=== PATIENT | male | born 1955 | race Caucasian/White ===

== ENCOUNTER 2017-03-10 17:15 | Inpatient (IN) | payer MEDICARE, MEDICAID ==
[2017-03-10 17:50] LABS: % BASOPHILS 0.2 % (0.0-2.0); % EOSINOPHILS 1.4 % (0.0-5.0); % LYMPHOCYTES 31.8 % (20.0-50.0); % MONOCYTES 7.4 % (2.0-10.0); % NEUTROPHILS 59.2 % (40.0-80.0); HEMATOCRIT 39.2 % (39.0-49.0); HEMOGLOBIN 13.1 gm/dL (13.2-17.3); MEAN CELL VOLUME 93.4 fl (80-99); MEAN CORPUSCULAR HEMOGLOBIN 31.3 pg (26.0-30.0); MEAN CORPUSCULAR HGB CONC 33.5 pg (28.0-36.0); MEAN PLATELET VOLUME 7.7 fl; NEUTROPHILE ABSOLUTE 4.8 Th/cmm (1.8-8.0); PLATELET COUNT 206 Th/cmm (150-400); RED CELL DISTRIBUTION WIDTH 12.8 % (11.5-20.0); WHITE BLOOD COUNT 8.1 Th/cmm (4.8-10.8)
--- NOTE | 2017-03-10 17:56 | ED Physician Chart ---
Chief Complaint/HPI - Patient Information Date Seen:: 03/10/17 Time Seen:: 17:31 Chief Complaint:: PSYCHOSIS History of Present Illness:: THIS IS A 62 YO DEMENTED MALE WHO IS CONFUSED TRYING TO GET AWAY CONSTANTLY AND AT TIMES COMBATIVE. HE IS UNABLE TO GIVE A HISTORY AND REVIEW OF HISTORY. Allergies:: Allergies Allergy/AdvReac Type Severity Reaction Status Date / Time No Known Allergies Allergy Verified 03/10/17 17:28 Vitals:: Vital Signs - 8 hr 03/10/17 17:20 Temp 98.1 F HR 69 RR 18 BP 101/47 O2 Sat % 97 Family Medical History - Family Member mother History Unknown: Yes Physical Exam - Physical Examination General/Constitutional: Awake, Well-developed, well-nourished, Alert, No distress, GCS 15, Non-toxic appearing, Ambulatory Other Gen/Cons comments:: CONFUSED WANDERING ALL OVER THE ER AND HAD TO BE SEDATED. Head: Atraumatic Eyes: Lids, conjuctiva normal, PERRL, EOMI Skin: Nl inspection, No rash, No skin lesions, No ecchymosis, Well hydrated, No lymphadenopathy ENMT: External ears, nose nl, Nasal exam nl, Lips, teeth, gums nl Neck: Nontender, Full ROM w/o pain, No JVD, No nuchal rigidity, No bruit, No mass, No stridor Respiratory: Nl effort/Exclusion, Clear to Auscultation, No Wheeze/Rhonchi/Rales Cardio Vascular: RRR, No murmur, gallop, rubs, NL S1 S2 GI: No tenderness/rebounding/guarding, No organomegaly, No hernia, Normal BS's, Nondistended, No mass/bruits, No McBurney tenderness : No CVA tenderness Extremities: No tenderness or effusion, Full ROM, normal strength in all extremities, No edema, Normal digits & nails Neuro/Psych: Alert/oriented, DTR's symmetric, Normal sensory exam, Normal motor strength, Normal gait, No focal deficits Other Neuro/Psych comments:: CONFUSED AND COMBATIVE Misc: normal gait, Normal back, No paraspinal tenderness Labs/Radiology/EKG Results - Radiology Results Results: CHEST - X-RAY = RIGHT HILAR NODES NOTED. OLD HEALING FX OF THE HUMERUS - EKG Interpretations EKG Time:: 17:39 Rate & Rhythm: RATE =67, SINUS [place]: RIGHT AXIS Intervals: NO PVCS Assessment - Assessment General Assessment: THE PATIENT HAD TO BE GIVEN TWO MG OF ATIVAN IM TO SLOW HIM DOWN. ED Septic Shock - . Is Septic Shock (SBP<90, OR Lactate>4 mmol\L) present?: No - <6hrs of presentation: Vital Signs: Vital Signs - 8 hr 03/10/17 17:20 Temp 98.1 F HR 69 RR 18 BP 101/47 O2 Sat % 97 Reassessment (Disposition) - Reassessment Reassessment Condition:: Unchanged - Diagnosis Diagnosis:: PSYCHOSIS COMBATIVE - Patient Disposition Discharge/Transfer:: Acute Care w/in this hosp Admitting Medical Physician:: Dilip Driver Admitting Psych Physician:: Kash Harp ED Discharge Plan - Patient Disposition Instructions: Psychosis
[2017-03-10 18:04] LABS: INR 0.95 (0.5-1.4); PROTHROMBIN TIME (TEST) 9.9 SECONDS (9.5-11.5)
[2017-03-10 18:11] LABS: ALB/GLOB RATIO 1.6 (1.0-1.8); ALKALINE PHOSPHATASE 118 U/L (34-104); ANION GAP 4.2 (7.0-16.0); BILIRUBIN,TOTAL 0.2 mg/dL (0.3-1.0); BUN - UREA NITROGEN 21 mg/dL (7-25); BUN/CREATININE RATIO 26.3; CALCIUM SERUM 10.7 mg/dL (8.6-10.3); CARBON DIOXIDE 33.1 mEq/L (21.0-31.0); CHLORIDE 104 mEq/L (98-107); CHOLESTEROL 148 mg/dL (<200); CREATININE - SERUM 0.8 mg/dL (0.7-1.3); GLUCOSE 90 mg/dL (70-105); POTASSIUM SERUM 4.3 mEq/L (3.5-5.1); SGOT 16 U/L (13-39); SGPT/ALT 7 U/L (7-52); SODIUM SERUM 137 mEq/L (136-145); TRIGLYCERIDES 169 mg/dL (<150)
[2017-03-10] MEDS ORDERED: Haloperidol Lactate 5 mg/mL 1mL Vial IM STA (18:30)
[2017-03-10] MEDS ORDERED: Haloperidol Lactate 5 mg/mL 1mL Vial ONE ×2 (18:31→18:34)
[2017-03-10] MEDS ORDERED: Fleet Enema 135 mL RC PRN (21:02)
[2017-03-10 23:20] VITALS: BP 115/63
[2017-03-11] MEDS ORDERED: Non-Formulary Item 1 EA (Pimavanserin Tartrate [Nuplazid] 34 MG) PO SCH (09:00)
[2017-03-11] MEDS ORDERED: LITHIUM CITRATE PO SCH (09:00)
--- NOTE | 2017-03-11 10:51 | Diagnostic Imaging Report ---
Portable chest x-ray HISTORY: Some breath Prior exams are not available for comparison. There is a poor inspiration. The heart size appears generous. Elevation right hemidiaphragm. There is generalized accentuation of the interstitial lung markings. The finding may be related to the poor inspiration. No definite focal processes are seen. Deformity associated with a fracture of the left humeral neck and proximal shaft noted. Age is indeterminate. Extensive deformity associated with old fracture of the distal left clavicle also seen. IMPRESSION: 1. Poor inspiration with accentuation of the interstitial lung markings. Allowing for this factor, no definite focal processes 2. Suggestion of cardiomegaly 3. Fractures distal left clavicle, left humeral neck and proximal shaft that appear chronic.
[2017-03-11] MEDS: Magnesium Hydroxide (MOM) 30 mL UDC PO SCH (20:44)
[2017-03-11] MEDS ORDERED: Non-Formulary Item 1 EA (Melatonin [Melatonin] 3 MG) PO SCH (21:00)
--- NOTE | 2017-03-12 08:29 | Psychosocial Evaluation ---
DATE OF SERVICE: 03/11/2017 IDENTIFYING DATA: The patient is a 62-year-old male, resident of [facility]. Information obtained by interviewing the patient as well as reviewing the admission papers. JUSTIFICATION FOR HOSPITALIZATION: The patient is admitted here on a voluntary basis in view of his acute agitation and paranoid behavior. CHIEF COMPLAINT: "I do not know." HISTORY OF PRESENT ILLNESS: This is a first psychiatric hospitalization to [facility] for this patient, who is reported to be very paranoid and agitated and has pain and could not be continued to lower level of care and hence the patient has been transferred over here. Prior to the hospitalization, the patient is reported to have been followed up by and has been on Seroquel and lithium. Because of his agitation, the patient has been given a dose of the Haldol, from thereon the patient has been displaying acute extrapyramidal reaction and hence Benadryl 25 mg has to be given IM. The patient has been diagnosed to have schizoaffective disorder. The patient at this time has been displaying bizarre behavior such as eating the paper and has been pacing most of the time on the unit. The patient is not able to provide much of information and the patient is also being closely monitored at this time for any acute EPS. PAST PSYCHIATRIC HISTORY: Details are not known. MEDICAL HISTORY: Physical examination is requested to be done by Dr. Driver. The patient at this time has been followed up for Parkinson's disease. The patient at this time has been having difficult time to cope with the stress. The patient's insight and judgment at this time are noted to be very much impaired. Impulse control is noted to be poor. SUBSTANCE ABUSE HISTORY: None. PHYSICAL OR SEXUAL ABUSE HISTORY: None. SOCIAL HISTORY: The patient is a resident of the [facility]. MENTAL STATUS EXAMINATION: The patient is a 62-year-old, looking his stated age, superficially cooperative. Eye contact is fair. Mood is noted to be depressed. Affect is constricted. The patient has been having EPS. The patient is almost catatonic. The patient is not able to contract for safety. The patient's behavior is reported to be a danger to others. The patient is alert, but as mentioned earlier cognitive abilities could not be tested at this time. DIAGNOSTIC IMPRESSION: AXIS I: Schizoaffective disorder, psychotic at this time. AXIS II: None. AXIS III: As per Dr. Driver. IMMEDIATE TREATMENT PLAN: The patient is going to be continued on the Seroquel. Trazodone is going to be decreased to 50 mg at bedtime, lithium is going to be on hold, Ativan is going to be given on a p.r.n. basis, so also the Benadryl. ESTIMATED LENGTH OF STAY: 3-5 days. DISCHARGE CRITERIA: When patient is no longer a threat to self or others and be able to cope up with the stress. JOB# [id number]
[2017-03-12] MEDS: Magnesium Hydroxide (MOM) 30 mL UDC PO SCH (20:33)
--- NOTE | 2017-03-12 22:19 | History & Physical ---
ADMIT DATE: 03/10/2017 CHIEF COMPLAINT: Psychosis. HISTORY OF PRESENT ILLNESS: The patient is a 62-year-old white male who was confused and trying to get away and combative. The patient is demented. The patient is unable to give history. ALLERGIES: No known allergies. FAMILY HISTORY: Noncontributory. SOCIAL HISTORY: The patient was transferred from [facility]. PAST MEDICAL HISTORY: Schizophrenia, paranoid type; dementia; bipolar disorder; Parkinson disease. MEDICATION: The patient is on Parkinson's medication, melatonin for schizophrenia. PAST SURGICAL HISTORY: Unknown. REVIEW OF SYSTEMS: See history of present illness. PHYSICAL EXAMINATION: GENERAL: The patient is awake, nontoxic in appearance. VITAL SIGNS: On admission, temperature 98.1, pulse 69, blood pressure 101/47, respiratory rate 18 and O2 sat is 97% on room air. HEENT: Normocephalic, atraumatic. Extraocular movements intact. Pupils reactive. Oropharynx clear. NECK: Supple. No thyromegaly. No lymphadenopathy. RESPIRATORY: Clear. No wheezes or rhonchi. GASTROINTESTINAL: Soft, nontender, nondistended. Positive bowel sounds. GENITOURINARY: No CVA tenderness. No suprapubic tenderness. BACK: No tenderness. EXTREMITIES: Equal pulses bilaterally. No cyanosis, clubbing or edema. SKIN: Negative. PSYCHIATRIC: Paranoid schizophrenia, bipolar type, altered level of consciousness. NEUROLOGIC: Cranial nerves intact. Extraocular movements are intact. Sensation is intact. Neurovascular intact. Bilateral muscle strength grossly equal. LABORATORY DATA: On admission are as follows; Hematology: WBC 8.1, hemoglobin 13.1, hematocrit 39.2, platelet count of 206, no left shift noted. PT 10.9, INR 0.95, PTT 23.3. Chemistry: Sodium 137, potassium 4.3, chloride 104, bicarbonate 33, anion gap 4.2, BUN 21, creatinine 0.8, GFR is more than 60. Glucose 90, calcium is 10.7, total bilirubin 0.2, AST 16, ALT 7, alkaline phosphatase 118. Troponin is 0.03. Total protein 6.2, albumin 3.8, globulin 2.4. Liver panel: Triglycerides 169, cholesterol 148, LDL is 72, HDL 51. TSH 1.43. RPR is nonreactive. IMPRESSION: 1. Acute psychosis, altered level of consciousness. 2. Paranoid schizophrenia. 3. Dementia. 4. Bipolar disorder. 5. Parkinson disease. PLAN: The patient was admitted to Geropsych Unit, seen by Dr. Edilberto Driver. Psychiatry consultation, Dr. Harp. We will obtain further labs and consultation as needed. JOB# [id number]
--- NOTE | 2017-03-13 02:13 | Progress Notes ---
DATE: 03/12/2017 PSYCHIATRIC PROGRESS NOTE TIME PATIENT SEEN: 8:15 a.m. SUBJECTIVE: Staff was spoken to. The patient is interviewed. Mood is noted to be irritable. Affect is constricted. The patient is grossly psychotic. Insight and judgment at this time are noted to be impaired. No side effects to the medications are noted. The patient has been having difficult time to cope with the stress. The patient has been urinating all over the floor and the patient has no clue with regards to the surroundings. Insight and judgment at this time are noted to be very much impaired. Impulse control seems to be fair. Coping skills are also noted to be fair. The patient, however, not aggressive, but is very confused at this time. ASSESSMENT: The patient has been having difficult time to cope with the stress. PLAN: To continue current meds and follow up. JOB# [id number] CARINA
--- NOTE | 2017-03-13 04:30 | Progress Notes ---
DATE: 03/12/2017 SUBJECTIVE: The patient is awake and alert. The patient is in Geropsych Unit. OBJECTIVE: VITAL SIGNS: Temperature 98.5, pulse of 77, blood pressure 133/71, respiratory rate 20, and O2 sat is 100% on room air. CARDIOVASCULAR: S1 and S2. RESPIRATORY: Clear. GASTROINTESTINAL: Soft. Positive bowel sounds. LABS: No labs for today. ASSESSMENT: 1. Schizoaffective disorder (psychotic). 2. Anemia. 3. Hypercalcemia. 4. Hyperalbuminemia. 5. Dyslipidemia. PLAN: Continue current treatment and medication. Obtain labs in a.m. Further recommendations per Psychiatry. JOB# [id number]
[2017-03-13 06:57] LABS: % BASOPHILS 0.4 % (0.0-2.0); % EOSINOPHILS 1.3 % (0.0-5.0); % LYMPHOCYTES 36.6 % (20.0-50.0); % MONOCYTES 7.5 % (2.0-10.0); % NEUTROPHILS 54.2 % (40.0-80.0); HEMATOCRIT 42.1 % (39.0-49.0); HEMOGLOBIN 14.1 gm/dL (13.2-17.3); MEAN CORPUSCULAR HEMOGLOBIN 30.7 pg (26.0-30.0); MEAN CORPUSCULAR HGB CONC 33.4 pg (28.0-36.0); MEAN PLATELET VOLUME 7.8 fl; NEUTROPHILE ABSOLUTE 3.3 Th/cmm (1.8-8.0); PLATELET COUNT 233 Th/cmm (150-400); RED BLOOD COUNT 4.58 Mil/cmm (4.30-5.70); RED CELL DISTRIBUTION WIDTH 12.7 % (11.5-20.0)
[2017-03-13 07:03] LABS: WHITE BLOOD COUNT 6.1 Th/cmm (4.8-10.8)
[2017-03-13 07:22] LABS: ANION GAP 3.1 (7.0-16.0); BUN - UREA NITROGEN 23 mg/dL (7-25); BUN/CREATININE RATIO 32.9; CALCIUM SERUM 10.9 mg/dL (8.6-10.3); CARBON DIOXIDE 32.1 mEq/L (21.0-31.0); CHLORIDE 106 mEq/L (98-107); CREATININE - SERUM 0.7 mg/dL (0.7-1.3); GLUCOSE 91 mg/dL (70-105); POTASSIUM SERUM 4.2 mEq/L (3.5-5.1); SODIUM SERUM 137 mEq/L (136-145)
[2017-03-13] MEDS: Magnesium Hydroxide (MOM) 30 mL UDC PO SCH (21:12)
--- NOTE | 2017-03-14 02:49 | Progress Notes ---
DATE: 03/13/2017 PSYCHIATRIC PROGRESS NOTE TIME PATIENT SEEN: 11:00 a.m. SUBJECTIVE: Staff was spoken to. The patient is interviewed. Mood is noted to be less irritable. Affect is appropriate. The patient is not making much sense. The patient needs to be redirected constantly. The patient is actively responding to internal stimuli. The patient is acting very bizarre and has been urinating all over the floor. ASSESSMENT: The patient is still psychotic. PLAN: To continue the patient with the current medications and followup. JOB# [id number]
--- NOTE | 2017-03-14 07:01 | Progress Notes ---
DATE: 03/13/2017 SUBJECTIVE: The patient is awake, alert. The patient is seen in Geropsych Unit. OBJECTIVE: VITAL SIGNS: Temperature 98.6, pulse 68, blood pressure 104/59, respirations 20, oxygen saturation 99% on room air. CARDIOVASCULAR: S1, S2. RESPIRATORY: Clear. GASTROINTESTINAL: Soft, positive bowel sounds. LABORATORY DATA: Labs on the patient is hematology, WBC 7.1, hemoglobin 14.1, hematocrit 42.1, platelet count of 253, no left shift noted. Chemistry, sodium 137, potassium 4.2, chloride per labs, bicarbonate 32, anion gap 3.1, BUN 23, creatinine 0.7, GFR is more than 60, glucose 91, calcium 10.9. MICROBIOLOGY: MRSA screen 03/10 positive. ASSESSMENT: 1. Methicillin-resistant Staphylococcus aureus colonization. 2. Hypercalcemia. 3. Acute psychosis. 4. Schizoaffective disorder (psychotic). 5. Dyslipidemia. PLAN: Continue current medication. Obtain labs on Monday. Further recommendations per psychiatry. We will obtain nephrology consultation, if repeat lab show elevated calcium levels. We will give Lasix today. Thank you very much. JOB# [id number] [facility] CENTERAdithya
[2017-03-14] MEDS: Magnesium Hydroxide (MOM) 30 mL UDC PO SCH (21:27)
--- NOTE | 2017-03-15 04:52 | Progress Notes ---
DATE: 03/14/2017 TIME PATIENT SEEN: 6:30 p.m. SUBJECTIVE: Staff was spoken to. The patient is interviewed. The patient is very intrusive and is getting into other people's rooms and the patient could not be contained____. The patient's insight and judgment at this time are noted to be very much impaired. Coping skills are noted to be very poor. The patient has to be given a dose of Ativan. The patient was briefly held in seclusion room this morning. ASSESSMENT: The patient is still psychotic and impulsive. PLAN: To continue the patient with the supportive therapy. I encouraged the patient to verbalize the concerns rather than to act out. JOB# [id number]
[2017-03-15 08:28] LABS: ANION GAP 5.7 (7.0-16.0); BUN - UREA NITROGEN 21 mg/dL (7-25); CALCIUM SERUM 10.6 mg/dL (8.6-10.3); CARBON DIOXIDE 30.6 mEq/L (21.0-31.0); CHLORIDE 107 mEq/L (98-107); CREATININE - SERUM 0.7 mg/dL (0.7-1.3); GLUCOSE 111 mg/dL (70-105); POTASSIUM SERUM 4.3 mEq/L (3.5-5.1); SODIUM SERUM 139 mEq/L (136-145)
--- NOTE | 2017-03-15 09:31 | Progress Notes ---
DATE: 03/14/2017 SUBJECTIVE: The patient is awake. The patient is in Geropsych Unit. Per nursing staff, concerned about edema in bilateral lower extremities. OBJECTIVE: VITAL SIGNS: Temperature per nursing, pulse 75, blood pressure 134/97, respirations 20, O2 saturations 96% on room air. CARDIOVASCULAR: S1 and S2. RESPIRATORY: Clear. GASTROINTESTINAL: Soft, positive bowel sounds. LABORATORY DATA: Labs from 13 of March, shows hematology, WBC 6.1, hemoglobin 14.1, hematocrit 42.1, platelet count of 283, no left shift noted. Chemistry: Sodium 137, potassium 4.2, chloride 106, bicarb 32, anion gap 3.1, BUN 23, creatinine 2.7. GFR is 160, glucose is 91, calcium 10.9. RADIOLOGY: No new results. ASSESSMENT: 1. Acute psychosis. 2. Hypercalcemia. 3. Bilateral lower extremity edema. 4. Methicillin-resistant Staphylococcus aureus colonization. 5. Schizoaffective disorder (psychotic). 6. Dyslipidemia. PLAN: Continue current medication and treatment. We will obtain labs in a.m. to follow up on calcium levels. Further recommendations per consults. We will obtain Nephrology consultation if the patient continues to show elevated calcium levels. Thank you very much. JOB# [id number] CARINA
[2017-03-15] MEDS: Magnesium Hydroxide (MOM) 30 mL UDC PO SCH (21:05)
--- NOTE | 2017-03-16 01:12 | Progress Notes ---
DATE: 03/15/2017 PSYCHIATRIC PROGRESS NOTE TIME PATIENT SEEN: 8:15 a.m. SUBJECTIVE: Staff was spoken to. The patient is interviewed. Mood is noted to be irritable. Affect is constricted. Insight and judgment are noted to be still impaired. Impulse control is noted to be poor. The patient is wandering into other people's rooms and has been urinating everywhere . The patient is currently on Seroquel 100 mg twice a day and is being closely monitored. The patient is being redirected at this time. No side effects to the medications are noted. ASSESSMENT: The patient is still impulsive and is not able to and not able to be stabilized and discharged to a lower level of care yet. JOB# [id number]
--- NOTE | 2017-03-16 06:40 | Progress Notes ---
DATE: 03/15/2017 SUBJECTIVE: The patient still is in Geropsych unit. Per psychiatry the patient is still psychotic and impulsive. OBJECTIVE: VITAL SIGNS: respirations 20, O2 sats 95% on room air. CARDIOVASCULAR: S1 and S2. RESPIRATORY: Clear. GASTROINTESTINAL: Soft, positive bowel sounds. LABORATORY DATA: Chemistry: Sodium 139, potassium 4.3, chloride 107, bicarbonate 30, BUN 21, creatinine 0.7. GFR more than 60. Glucose is 111. Calcium is 10.6. ASSESSMENT: 1. Hyperglycemia. 2. Hypercalcemia. 3. Acute psychosis. 4. Bilateral lower extremities edema. 5. Methicillin-resistant Staphylococcus aureus colonization. 6. Schizoaffective disorder (psychotic). 7. Dyslipidemia. PLAN: Continue current medication. We will obtain Nephrology consultation. We will repeat labs on Monday. Further recommendations per Psychiatry. JOB# [id number] MTDD
--- NOTE | 2017-03-16 13:08 | General Progress Note ---
Subjective - Review of Systems Service Date: 03/16/17 Subjective: Renal consultation Dictated #[id number] Hypercalcemia, mild. asymptomatic - may be component of volume, will obtain appropriate laboratory workup See dictation for full consult details Objective - Results Result Diagrams: 03/13/17 06:40 03/15/17 06:50 Recent Labs: Laboratory Last Values WBC 6.1 Th/cmm (4.8-10.8) D 03/13/17 06:40 RBC 4.58 Mil/cmm (4.30-5.70) 03/13/17 06:40 Hgb 14.1 gm/dL (13.2-17.3) 03/13/17 06:40 Hct 42.1 % (39.0-49.0) 03/13/17 06:40 MCV 92.0 fl (80-99) 03/13/17 06:40 MCH 30.7 pg (26.0-30.0) H 03/13/17 06:40 MCHC Differential 33.4 pg (28.0-36.0) 03/13/17 06:40 RDW 12.7 % (11.5-20.0) 03/13/17 06:40 Plt Count 233 Th/cmm (150-400) 03/13/17 06:40 MPV 7.8 fl 03/13/17 06:40 Neutrophils % 54.2 % (40.0-80.0) 03/13/17 06:40 Lymphocytes % 36.6 % (20.0-50.0) 03/13/17 06:40 Monocytes % 7.5 % (2.0-10.0) 03/13/17 06:40 Eosinophils % 1.3 % (0.0-5.0) 03/13/17 06:40 Basophils % 0.4 % (0.0-2.0) 03/13/17 06:40 PT 9.9 SECONDS (9.5-11.5) 03/10/17 17:39 INR 0.95 (0.5-1.4) 03/10/17 17:39 PTT (Actin FS) 23.3 SECONDS (26.0-38.0) L 03/10/17 17:39 Sodium 139 mEq/L (136-145) 03/15/17 06:50 Potassium 4.3 mEq/L (3.5-5.1) 03/15/17 06:50 Chloride 107 mEq/L (98-107) 03/15/17 06:50 Carbon Dioxide 30.6 mEq/L (21.0-31.0) 03/15/17 06:50 Anion Gap 5.7 (7.0-16.0) L 03/15/17 06:50 BUN 21 mg/dL (7-25) 03/15/17 06:50 Creatinine 0.7 mg/dL (0.7-1.3) 03/15/17 06:50 Est GFR ( Amer) > 60.0 ml/min (>90) 03/15/17 06:50 Est GFR (Non-Af Amer) > 60.0 ml/min 03/15/17 06:50 BUN/Creatinine Ratio 30.0 03/15/17 06:50 Glucose 111 mg/dL (70-105) H 03/15/17 06:50 Calcium 10.6 mg/dL (8.6-10.3) H 03/15/17 06:50 Total Bilirubin 0.2 mg/dL (0.3-1.0) L 03/10/17 17:39 AST 16 U/L (13-39) 03/10/17 17:39 ALT 7 U/L (7-52) 03/10/17 17:39 Alkaline Phosphatase 118 U/L (34-104) H 03/10/17 17:39 Troponin I 0.03 ng/mL (0.01-0.05) 03/10/17 17:39 Total Protein 6.2 gm/dL (6.0-8.3) 03/10/17 17:39 Albumin 3.8 gm/dL (4.2-5.5) L 03/10/17 17:39 Globulin 2.4 gm/dL 03/10/17 17:39 Albumin/Globulin Ratio 1.6 (1.0-1.8) 03/10/17 17:39 Triglycerides 169 mg/dL (<150) H 03/10/17 17:39 Cholesterol 148 mg/dL (<200) 03/10/17 17:39 LDL Cholesterol Direct 72 mg/dL (75-193) L 03/10/17 17:39 HDL Cholesterol 51 mg/dL (23-92) 03/10/17 17:39 TSH 1.43 uIU/ml (0.34-5.60) 03/10/17 17:39 RPR NONREACTIVE (NONREACTIVE) 03/10/17 17:39 - Physical Exam Vitals and I&O: Vital Signs Temp 97.8 F 03/15/17 14:00 Pulse 80 03/15/17 14:00 Resp 18 03/16/17 08:00 BP 102/65 03/15/17 14:00 Pulse Ox 97 03/15/17 14:00 Intake & Output 03/15/17 03/16/17 03/16/17 18:59 06:59 18:59 Intake Total 1000 Balance 1000 Intake: Oral 1000 Other: # Voids 3 # Bowel Movements 1 Stool Characteristics Soft Active Medications: Current Medications Acetaminophen (Tylenol) 650 mg PO Q4HR PRN PRN Reason: mild pain Stop: 05/09/17 21:01 Last Admin: 03/15/17 13:11 Dose: 650 mg Bisacodyl (Dulcolax 10 Mg Supp) 10 mg RC DAILY PRN PRN Reason: Constipation Stop: 05/09/17 21:01 Carbidopa/Levodopa (Sinemet 25mg-100 Mg) 1 tab PO TID LAMAR Stop: 05/10/17 08:59 Last Admin: 03/16/17 09:37 Dose: 1 tab Docusate Sodium (Colace) 100 mg PO DAILY LAMAR Stop: 05/10/17 08:59 Last Admin: 03/16/17 09:36 Dose: 100 mg Levofloxacin (Levaquin) 500 mg PO DAILY LAMAR Stop: 05/10/17 08:59 Last Admin: 03/16/17 09:38 Dose: 500 mg Lorazepam (Ativan) 1 mg PO Q6H PRN; Protocol PRN Reason: Agitation Stop: 05/09/17 21:01 Last Admin: 03/15/17 10:57 Dose: 1 mg Magnesium Hydroxide (Milk Of Magnesia) 30 ml PO HS LAMAR Stop: 05/10/17 20:59 Last Admin: 03/15/17 21:05 Dose: 30 ml Miscellaneous (Pimavanserin Tartrate [Nuplazid]) 34 mg PO DAILY LAMAR Stop: 05/10/17 08:59 Mupirocin (Bactroban Oint) 1 appl NS BID LAMAR Stop: 03/18/17 09:01 Last Admin: 03/16/17 09:37 Dose: 1 appl Quetiapine Fumarate (Seroquel) 100 mg PO BID LAMAR PRN Reason: Protocol Stop: 05/10/17 08:59 Last Admin: 03/16/17 09:37 Dose: 100 mg Sodium Phosphate (Fleet Enema) 135 ml RC Q2D PRN PRN Reason: Constipation Stop: 05/09/17 21:01 Trazodone HCl (Desyrel) 50 mg PO HS LAMAR Stop: 05/10/17 20:59 Last Admin: 03/15/17 21:06 Dose: 50 mg Zolpidem Tartrate (Ambien) 5 mg PO HS PRN PRN Reason: Insomnia Stop: 05/09/17 21:17 Last Admin: 03/11/17 02:44 Dose: 5 mg Nutritional Asmnt/Malnutr-PDOC - Dietary Evaluation Malnutrition Findings (Please click <Entered> for more info): Nutritional Asmnt/Malnutrition Start: 03/15/17 14: 11 Text: Status: Complete Freq: Document 03/15/17 14:11 GSUN (Rec: 03/15/17 14:24 [email or web address] [email or web address]) Nutritional Asmnt/Malnutrition Patient General Information Nutritional Screening Diagnosis Diagnosis Acute psychosis, altered level of consciousness Pertinent Medical Hx/Surgical Hx Schizophrenia pranoid type, dementia, bipolar disorder, Parkinson's Subjective Information 62 year old male. Pt was seen in leah chair in rec room with lunch tray 100% finished. Pt is talkative and a poor historian, able to answer simple questions. Pt stated good appetite, denied difficulties chewing/ swallowing, teeth intact. No significant fat/muscle wasting noted. Avg PO intake 100% since adm, meeting nutritional needs. Current Diet Order/ Nutrition Support Fat controlled Pertinent Medications Colace, MOM, Seroquel, Fleet Enema Pertinent Labs 03/10: triglycerides 169H, LDL 72L Nutritional Hx/Data Height 1.88 m Height (Calculated Centimeters) 188.0 Current Weight (lbs) 84.368 kg Weight (Calculated Kilograms) 84.4 Weight (Calculated Grams) 05641.2 [place] Body Weight 190 Weight Status Approriate GI Symptoms Food Allergies No Usual diet at home [place]: regular Skin Integrity/Comment: Lemuel 21. Skin intact. Current %PO Good (75-100%) Estimated Nutritional Goals BEE in Kcals: Using Current wt Calories/Kcals/Kg CBW 84.4kg Kcals Calculated 2110-2532kcal (25-30kcal/kg) Protein: Using Current wt Protein Calculated 84g (1g/kg) Fluid: ml 2110-2532ml (1ml/kcal) Nutritional Problem 1. Problem Problem No nutritional problem at this time. Intervention/Recommendation Comments 1. Continue with current diet. Avg PO intake is adequate. Expected Outcomes/Goals Expected Outcomes/Goals 1. PO intake continue to meet at least 75% of estimated nutritional needs.
[2017-03-16] MEDS: Magnesium Hydroxide (MOM) 30 mL UDC PO SCH (21:04)
--- NOTE | 2017-03-17 03:25 | Progress Notes ---
DATE: 03/16/2017 PSYCHIATRIC PROGRESS NOTE TIME PATIENT SEEN: 11:15 a.m. SUBJECTIVE: Staff was spoken to. The patient is interviewed. Mood is noted to be irritable. Affect is constricted. Coping skills are noted to be still poor. No side effects to medications are noted. The patient has been still isolative and withdrawn and responding to internal stimuli. The patient has to be kept chair because the patient has been wandering off into other patient's rooms. The patient is grossly psychotic at this time, but however, has been compliant with the medications. PLAN: To continue the patient with the current medications and followup. JOB# [id number]
--- NOTE | 2017-03-17 07:26 | Consultation ---
DATE OF CONSULTATION: 03/16/2017 INPATIENT NEPHROLOGY CONSULTATION REASON FOR CONSULTATION: Hypercalcemia. HISTORY OF PRESENT ILLNESS: The patient is a pleasant 62-year-old gentleman with history of schizophrenia, who was admitted after trying to run away. On examination, the patient actually denies previous history of kidney problems, he does not know if he has any significant other medical disorders. He is speaking very tangentially and in a pressured form of speech on my examination. REVIEW OF SYSTEMS: Denies fevers, chills, nausea, vomiting, chest pain, shortness of breath, abdominal pain, leg pain, joint pain. Otherwise, 14-point review of systems negative except as noted above. PAST MEDICAL HISTORY: Includes dementia, bipolar disorder, Parkinson disease, and schizophrenia, paranoid type. PAST SURGICAL HISTORY: None. MEDICATIONS: Please see medication reconciliation sheet. MEDICATIONS: As an inpatient at this time include Tylenol, carbidopa and levodopa, docusate, levofloxacin, Ativan as needed for anxiety/agitation, magnesium hydroxide, mupirocin, quetiapine, sodium phosphate, Fleet enema as needed for constipation, trazodone, and zolpidem at bedtime p.r.n. ALLERGIES: No known drug allergies. PHYSICAL EXAMINATION: VITAL SIGNS: Temperature 36, blood pressure 102/65, pulse 77, respirations 18. GENERAL APPEARANCE: Well-developed and well-nourished man, elderly, speaking with pressured speech. LUNGS: Clear to auscultation bilaterally. CARDIOVASCULAR: Regular rate, normal rhythm. No rubs or gallops. EXTREMITIES: Trace edema, 1+ pulses distally. LABORATORY DATA: As follows on 03/15/2017, sodium 139, K 4.3, chloride 107, CO2 of 30, BUN 21, creatinine 0.7, calcium 10.6, albumin 3.8. TSH is 1.43. CBC as of 03/13/2017, white count 6.1, hemoglobin 14.1, platelets 233. ASSESSMENT AND RECOMMENDATIONS: 1. Hypercalcemia. The patient has run a fairly high calcium of 10.7. We will obtain ionized serum calcium. Urinalysis would be a better way to elucidate, especially a 24-hour urine collection, but this is impractical due to the [facility]. As such, we will order calcium, 1-25 OH vitamin D, parathyroid hormone related peptide and vitamin D for evaluation. The patient is relatively immobile, but again this could be secondary to a component of volume depletion in which the patient should be encouraged to stay on oral hydration versus other workup for hypercalcemia that is pending. 2. Schizophrenia, paranoid type. The patient is in the Geropsych Unit and remains sedated on antipsychotic medication. At this time appears to be stable other than pressured speech. No significant exacerbation of psychiatric conditions noted. 3. Dementia, parkinsonian type, stable. Remains on Sinemet. 4. Bipolar disorder. The patient again is not on any significant mood stabilizing agent. We would avoid supplementation with calcium carbonate in view of hypercalcemia. Thank you Dr. Driver for allowing us to follow in the care of this patient. We will continue to follow on an as needed basis and will follow up on the workup for hypercalcemia accordingly. JOB# [id number] MTDD
--- NOTE | 2017-03-17 15:32 | Diagnostic Imaging Report ---
Left shoulder (2 views, portable) HISTORY: Pain There is severe deformity associated with a mildly displaced fracture of the proximal humeral shaft. Callus formation noted. Question superimposed acute fracture involving the humeral neck. Severe deformity associated with an old fracture of the distal left clavicle. Findings are associated with acromioclavicular separation. IMPRESSION: 1. Findings consistent with healing fracture involving the proximal humeral shaft. A superimposed acute fracture involving the humeral neck cannot be excluded. Needed, a CT scan would provide additional assessment. 2. Old fracture of the distal left clavicle severe deformity.
[2017-03-17] MEDS: Magnesium Hydroxide (MOM) 30 mL UDC PO SCH ×2 (20:28→21:13)
--- NOTE | 2017-03-18 08:28 | Progress Notes ---
DATE: 03/17/2017 SUBJECTIVE: The patient is awake and alert. The patient is still in Geropsych Unit. Per Psychiatry, the patient is still psychotic at this time. OBJECTIVE: VITAL SIGNS: Temperature is 97.4, pulse 74, blood pressure per nursing, respiratory 20, and O2 sat is 95% on room air. CARDIOVASCULAR: S1 and S2. RESPIRATORY: Clear. GASTROINTESTINAL: Soft. Positive bowel sounds. LABS: No labs for today. ASSESSMENT: 1. Acute psychosis. 2. Bilateral lower extremity edema. 3. Methicillin-resistant Staphylococcus aureus colonization. 4. Schizoaffective disorder (psychotic). 5. Dyslipidemia. PLAN: Continue current treatment and medication. Further recommendation per psychiatry services. JOB# [id number] CARINA
--- NOTE | 2017-03-18 10:49 | Diagnostic Imaging Report ---
CT scan left shoulder HISTORY: Fracture Total DLP equals CTDI equals Axial sections were obtained through the left shoulder. Additional coronal and sagittal reformatted images are provided. The exam demonstrates a displaced angulated fracture involving the proximal humeral shaft. Callus formation is seen. However incomplete bony union. Sclerotic margins about the fracture site suggest a subacute/chronic timeframe. No dislocation. Old fracture of the distal left clavicle noted with deformity. IMPRESSION: 1. Deformity associated with findings suggesting subacute/chronic fracture involving the proximal left humeral shaft with incomplete bony union. 2. Deformity associated with fracture of the distal left clavicle.
--- NOTE | 2017-03-18 11:22 | Progress Notes ---
DATE: 03/17/2017 SUBJECTIVE: The patient is awake and alert. Per Psychiatry, the patient is still psychotic. Per nursing staff, the patient has some swelling of left shoulder. Per Nephrology, the patient's hypercalcemia is asymptomatic. OBJECTIVE: VITAL SIGNS: Temperature is 98.4, pulse 75, blood pressure per nursing, respiratory rate 20, and O2 sat is on room air. CARDIOVASCULAR: S1 and S2. RESPIRATORY: Clear. GASTROINTESTINAL: Soft. Positive bowel sounds. LAB DATA: No labs for today. RADIOLOGY: X-ray of the left shoulder shows healing proximal humeral shaft. Subacute fracture involving the humeral neck. CT scan of right shoulder. Old fracture of distal left clavicle with severe deformity. ASSESSMENT: 1. History of left humeral shaft fracture. 2. History of left clavicle fracture. 3. Hypercalcemia (asymptomatic). 4. Acute psychosis. 5. Bilateral lower extremity edema (probably secondary to venous insufficiency disease). 6. Methicillin-resistant Staphylococcus aureus colonization. 7. Schizoaffective disorder (psychotic). 8. Dyslipidemia. PLAN: Continue current medication and treatment. We will obtain CT scan of the shoulder. We will obtain labs on Monday. JOB# [id number] [facility]
--- NOTE | 2017-03-18 15:00 | Progress Notes ---
DATE: 03/17/2017 PSYCHIATRIC PROGRESS NOTE TIME PATIENT SEEN: 11:00 a.m. SUBJECTIVE: Staff was spoken to. The patient is interviewed. Mood is noted to be irritable. Affect is constricted. Insight and judgment are noted to be still impaired. Impulse control seems to be poor. The patient has paranoid delusions. The patient seems to be pacing on the unit and getting into other people's rooms and hence the patient needs to be redirected. The patient is currently in [place] chair in the hallway. ASSESSMENT: The patient is still grossly psychotic. PLAN: To continue the patient with supportive therapy and followup. JOB# [id number]
[2017-03-18] MEDS: Magnesium Hydroxide (MOM) 30 mL UDC PO SCH (20:21)
--- NOTE | 2017-03-19 03:26 | Progress Notes ---
DATE: 03/18/2017 PSYCHIATRIC PROGRESS NOTE TIME PATIENT SEEN: 2:15 p.m. SUBJECTIVE: Staff was spoken to. The patient is interviewed. Mood is noted to be irritable. Affect is constricted. The patient's coping skills are noted to still poor. Sleep and appetite also noted to be poor. The patient has been having difficult time to cope with the stress. The patient is still paranoid and tends to get into this catatonic posture and the patient has no insight and the patient needs to be pacing most of the time on the unit and has been urinating when he is allowed to walk freely on the unit. The patient has no insight into his illness. ASSESSMENT: The patient is still grossly psychotic. PLAN: To increase the dose on the Seroquel to 300 mg a day and follow the patient with supportive therapy. JOB# [id number]
--- NOTE | 2017-03-19 13:47 | Admit Criteria Form ---
Admit Criteria Forms - Admit Criteria Diagnosis: PSYCHIATRIC DISORDERS Clinical Indications for Inpatient Care (Place 'X' for any and all applicable criteria): Ongoing inpatient care may be needed for ANY ONE of the following(1)(2)(3)(4)(6) (7)(8): [X ]I. Danger to self or others not manageable at lower level of care. [ ]II. Grave disability (eg, inability to perform self care necessary at lower level of care) [ ]III. Agitation or inappropriate behavior interfering with care for primary condition (eg, attempting to discontinue lines or drains prematurely, unable to cooperate with respiratory care) [ ]IV. Severe disability or disorder indicated by ALL of the following: [ ]a) Severe behavioral health disorder-related symptoms or condition indicated by ANY ONE of the following: [ ]i) Severe problem with cognition, memory, judgment, or impulse control [ ]ii) Severe clinical manifestations (eg, hallucinations, delusions, other acute psychotic symptoms, cristiane, extreme agitation or anxiety) [ ]b) Patient management at lower level of care is not feasible until acute intervention or modification is initiated. Extended stay beyond goal length of stay for the primary condition may be indicated when ANY ONE of the following is present: (1)(2)(3)(4): [ ]a) Patient is a danger to self or others and not manageable at lower level of care. [ ]b) Behavior crisis management, including physical or chemical restraints, is required and is not available at a lower level of care. [ ]c) Behavioral symptoms (e.g., agitation, somnolence, inappropriate behavior) are present, and are not manageable at a lower level of care. [ ]d) Patient cannot understand follow-up treatment and crisis plan. [ ]e) Provider and supports are not sufficiently available at lower level of care. [ ]f) Patient cannot participate (e.g., verify absence of plan for harm) and is in needed of monitoring. The original [facility] [employer] content created by [facility] [employer] has been revised. The portions of the content which have been revised are identified through the use of italic text or in bold, and [facility] [employer] has neither reviewed nor approved the modified material. All other unmodified content is copyright [facility] [employer]. Please see references footnoted in the original [facility] edition 2016 Admit Criteria Met?: Yes
[2017-03-19] MEDS: Magnesium Hydroxide (MOM) 30 mL UDC PO SCH (20:41)
--- NOTE | 2017-03-20 03:24 | Progress Notes ---
DATE: 03/19/2017 SUBJECTIVE: The patient is awake and alert. The patient is still in Geropsych Unit. Per Psychiatry, the patient is still grossly psychotic. OBJECTIVE: VITAL SIGNS: Temperature 98.1, pulse 70, blood pressure 141/66, respiratory rate 20, and O2 sat is 97% on room air. CARDIOVASCULAR: S1 and S2. RESPIRATORY: Clear. GASTROINTESTINAL: Soft. Positive bowel sounds. LABS: No labs for today. RADIOLOGY: No new radiology results. MICROBIOLOGY: MRSA screen 03/10 positive. ASSESSMENT: 1. Methicillin-resistant Staphylococcus aureus colonization. 2. Acute psychosis. 3. Bilateral lower extremity edema secondary to venous insufficiency. 4. Schizoaffective disorder (psychotic). 6. History of left humeral shaft fracture. 7. History of left clavicle fracture. PLAN: Continue current treatment and medication. Further recommendation per psychiatry. We will obtain labs in a.m. JOB# [id number] MTDAdithya
--- NOTE | 2017-03-20 03:30 | Progress Notes ---
DATE: 03/18/2017 SUBJECTIVE: The patient is awake and alert. The patient is still in Geropsych Unit. Per Psychiatry, the patient is still grossly psychotic. OBJECTIVE: VITAL SIGNS: Temperature 98.2, pulse 72, blood pressure ____, respiratory rate 20, and O2 sat is on room air. CARDIOVASCULAR: S1 and S2. RESPIRATORY: Clear. GASTROINTESTINAL: Soft. Positive bowel sounds. LABS: No labs for today. ASSESSMENT: 1. History of left humeral shaft fracture. 2. History of left clavicle fracture. 3. Hypercalcemia (asymptomatic). 4. Acute psychosis. 5. Bilateral lower extremity edema secondary to venous insufficiency. 6. Methicillin-resistant Staphylococcus aureus colonization. 7. Schizoaffective disorder (psychotic). 8. Dyslipidemia. PLAN: Continue current treatment and medication. The patient had upper extremity CT done on 03/17 which showed deformity associated with chronic fracture involving the proximal left humeral shaft and deformity associated with fracture of the distal left clavicle. [facility]# [id number] [facility]ENTERAd[facility]
[2017-03-20 09:30] LABS: ALB/GLOB RATIO 1.7 (1.0-1.8); ALKALINE PHOSPHATASE 117 U/L (34-104); ANION GAP 8.2 (7.0-16.0); BILIRUBIN,TOTAL 0.2 mg/dL (0.3-1.0); BUN - UREA NITROGEN 24 mg/dL (7-25); BUN/CREATININE RATIO 34.3; CALCIUM SERUM 10.7 mg/dL (8.6-10.3); CARBON DIOXIDE 32.9 mEq/L (21.0-31.0); CHLORIDE 104 mEq/L (98-107); CREATININE - SERUM 0.7 mg/dL (0.7-1.3); GLUCOSE 97 mg/dL (70-105); POTASSIUM SERUM 4.1 mEq/L (3.5-5.1); SGOT 15 U/L (13-39); SGPT/ALT 17 U/L (7-52); SODIUM SERUM 141 mEq/L (136-145)
--- NOTE | 2017-03-20 09:34 | Progress Notes ---
DATE: 03/19/2017 TIME PATIENT SEEN: 12:30 p.m. SUBJECTIVE: Staff was spoken to. The patient is interviewed. Mood is noted to be irritable. Affect is constricted. The patient is pacing on the unit. Insight and judgment are very much impaired. She is very intrusive and . The patient is currently on 100 mg 3 times a day of the Seroquel and has been able to tolerate the medications. No side effects to the medications are noted at this time. ASSESSMENT: The patient is still grossly psychotic. PLAN: To continue the patient with the current medications and follow with supportive therapy. JOB# [id number]
[2017-03-20 09:36] LABS: % BASOPHILS 0.5 % (0.0-2.0); % EOSINOPHILS 0.7 % (0.0-5.0); % LYMPHOCYTES 22.3 % (20.0-50.0); % MONOCYTES 4.8 % (2.0-10.0); % NEUTROPHILS 71.7 % (40.0-80.0); HEMATOCRIT 38.5 % (39.0-49.0); HEMOGLOBIN 12.9 gm/dL (13.2-17.3); MEAN CELL VOLUME 93.1 fl (80-99); MEAN CORPUSCULAR HEMOGLOBIN 31.2 pg (26.0-30.0); MEAN CORPUSCULAR HGB CONC 33.6 pg (28.0-36.0); MEAN PLATELET VOLUME 8.2 fl; NEUTROPHILE ABSOLUTE 5.3 Th/cmm (1.8-8.0); PLATELET COUNT 187 Th/cmm (150-400); RED BLOOD COUNT 4.14 Mil/cmm (4.30-5.70); RED CELL DISTRIBUTION WIDTH 12.8 % (11.5-20.0)
[2017-03-20 09:39] LABS: WHITE BLOOD COUNT 7.5 Th/cmm (4.8-10.8)
[2017-03-20] MEDS: Magnesium Hydroxide (MOM) 30 mL UDC PO SCH (20:37)
--- NOTE | 2017-03-21 10:52 | Diagnostic Imaging Report ---
Bilateral lower extremity Doppler venous ultrasound exam HISTORY: Pain/swelling Sonographic sector images were obtained through the deep venous systems of both legs. Associated Doppler data was obtained. The exam demonstrates patency of the common femoral, superficial femoral, popliteal, and posterior tibial veins bilaterally. Specifically, no thrombus is seen. There are normal compressibility and augmentation responses. IMPRESSION: Negative exam for deep vein thrombophlebitis.
--- NOTE | 2017-03-21 10:55 | Diagnostic Imaging Report ---
Bilateral lower extremity Doppler arterial ultrasound exam HISTORY: Pain, swelling Sonographic sector images were obtained through the arterial systems of both legs. Associated Doppler data was obtained. The exam of the right leg demonstrates triphasic waveforms within the common femoral, superficial femoral, popliteal, and anterior tibial arteries. Biphasic waveforms are noted within the right posterior tibial and dorsalis pedis arteries. Minimal increase in velocity within the right talus pedis artery. Mild diffuse atherosclerotic changes are seen through the arterial system. No significant narrowing or occlusion seen. The right ankle-brachial index is normal (1.08). The exam of the left leg demonstrates triphasic waveforms within the common femoral along with the proximal midportion of the left superficial femoral artery. Triphasic waveforms also noted within the left popliteal artery. Biphasic waveforms noted within the distal portion of the superficial femoral artery and within the left anterior tibial, posterior tibial, and dorsalis pedis arteries. No significant abnormal velocities. Mild atherosclerotic changes noted throughout the arterial system. The left ankle-brachial index is normal (1.14). IMPRESSION: 1. Evidence of mild diffuse bilateral atherosclerotic changes. No significant narrowing/occlusion seen.
--- NOTE | 2017-03-21 19:04 | Progress Notes ---
DATE: 03/20/2017 PSYCHIATRIC PROGRESS NOTE TIME PATIENT SEEN: 10:45 a.m. SUBJECTIVE: Staff was spoken to. The patient is interviewed. Mood is noted to be less irritable. Affect is appropriate. The patient has been pacing on the unit, but the patient could participate in the groups. The patient has been kept in the chair because the patient has been running into other people's rooms. No side effects to the medications are noted at this time. ASSESSMENT: The patient is still paranoid. PLAN: To continue the patient with the current medications. I encouraged the patient to verbalize the concerns rather than to act out. JOB# [id number]
[2017-03-21] MEDS: Magnesium Hydroxide (MOM) 30 mL UDC PO SCH (20:23)
--- NOTE | 2017-03-21 22:43 | Progress Notes ---
DATE: 03/20/2017 SUBJECTIVE: The patient is awake and alert. The patient is still in Geropsych Unit. Per Psychiatry, the patient still is grossly psychotic. OBJECTIVE: VITAL SIGNS: Temperature is 98.3, pulse 70, blood pressure 113/82, respiratory rate 19, O2 sat 94% on room air. CARDIOVASCULAR: S1 and S2. RESPIRATORY: Clear. GASTROINTESTINAL: Soft. Positive bowel sounds. EXTREMITIES: Edema present. LABORATORY DATA: Hematology: WBC 7.5, hemoglobin 12.9, hematocrit 38.5, platelet count per labs, no left shift noted. Chemistry: Sodium is 141, potassium 4.1, chloride 104, bicarbonate 32, anion gap per labs, BUN 24, creatinine 0.7. GFR is more than 60, glucose is 97, calcium 10.7. Total bili 0.2, AST 15, ALT 17, alkaline phosphatase per labs, albumin 3.8, globulin 2.3. ASSESSMENT: 1. Anemia. 2. Hypercalcemia. 3. Hypoalbuminemia. 4. Methicillin-resistant Staphylococcus aureus colonization. 5. Acute psychosis. 7. Dyslipidemia. 8. History of left femur shaft fracture and history of left clavicular fracture. PLAN: Continue current medication and treatment. Obtain labs on Monday. We will re-order ultrasound of bilateral lower extremities. [facility]# [id number] [facility]
[2017-03-22 08:04] LABS: % BASOPHILS 0.1 % (0.0-2.0); % EOSINOPHILS 0.8 % (0.0-5.0); % LYMPHOCYTES 24.5 % (20.0-50.0); % MONOCYTES 4.8 % (2.0-10.0); % NEUTROPHILS 69.8 % (40.0-80.0); HEMATOCRIT 39.9 % (39.0-49.0); HEMOGLOBIN 13.4 gm/dL (13.2-17.3); MEAN CELL VOLUME 92.5 fl (80-99); MEAN CORPUSCULAR HEMOGLOBIN 31.1 pg (26.0-30.0); MEAN CORPUSCULAR HGB CONC 33.6 pg (28.0-36.0); MEAN PLATELET VOLUME 8.1 fl; NEUTROPHILE ABSOLUTE 5.2 Th/cmm (1.8-8.0); PLATELET COUNT 202 Th/cmm (150-400); RED BLOOD COUNT 4.32 Mil/cmm (4.30-5.70); RED CELL DISTRIBUTION WIDTH 12.9 % (11.5-20.0); WHITE BLOOD COUNT 7.6 Th/cmm (4.8-10.8)
[2017-03-22 08:14] LABS: ANION GAP 8.6 (7.0-16.0); BUN - UREA NITROGEN 29 mg/dL (7-25); BUN/CREATININE RATIO 41.4; CALCIUM SERUM 11.1 mg/dL (8.6-10.3); CARBON DIOXIDE 28.5 mEq/L (21.0-31.0); CHLORIDE 106 mEq/L (98-107); CREATININE - SERUM 0.7 mg/dL (0.7-1.3); GLUCOSE 125 mg/dL (70-105); POTASSIUM SERUM 4.1 mEq/L (3.5-5.1); SODIUM SERUM 139 mEq/L (136-145)
--- NOTE | 2017-03-22 14:38 | Progress Notes ---
DATE: 03/21/2017 PSYCHIATRIC PROGRESS NOTE TIME PATIENT SEEN: 11:00 a.m. SUBJECTIVE: Staff was spoken to. The patient is interviewed. Mood is noted to be irritable. Affect is constricted. The patient is isolative and withdrawn. As long as the patient is in the [place] chair, he is fine, but ____ he is out, he is wandering into other people's rooms and has been urinating wherever he can find a space. The patient has no insight into his illness. The patient is grossly psychotic at this time. ASSESSMENT: The patient is still impulsive and psychotic. PLAN: To continue the patient with the current medications. I encouraged the patient to verbalize the concerns rather than to act out. The patient is not ready to be discharged to a lower level of care yet. JOB# [id number]
[2017-03-22] MEDS ORDERED: Haloperidol Lactate 5 mg/mL 1mL Vial ONE (14:52)
[2017-03-22] MEDS ORDERED: Haloperidol Lactate 5 mg/mL 1mL Vial IM ONE (14:55)
[2017-03-22] MEDS: Magnesium Hydroxide (MOM) 30 mL UDC PO SCH (20:50)
--- NOTE | 2017-03-22 22:17 | Progress Notes ---
DATE: 03/21/2017 SUBJECTIVE: The patient is awake and alert. The patient still is in Geropsych Unit. Per Psychiatry, the patient is still grossly psychotic. OBJECTIVE: VITAL SIGNS: Temperature 98, pulse of 77, blood pressure per nursing, oxygen on room air. CARDIOVASCULAR: S1 and S2. RESPIRATORY: Clear. GASTROINTESTINAL: Soft, positive bowel sounds. EXTREMITIES: Edema present. LABORATORY DATA: No labs for today. RADIOLOGY: Bilateral lower extremity venous ultrasound from 03/20/2017 is negative for DVT. Bilateral lower extremity ultrasound from 03/20/2017 shows evidence of mild diffuse bilateral atherosclerotic changes. No significant narrowing or occlusions seen. ASSESSMENT: 1. Methicillin-resistant Staphylococcus aureus colonization. 2. Acute psychosis. 3. Bilateral lower extremities edema (secondary to venous insufficiency). 4. Bilateral lower extremities venous insufficiency. 5. Schizoaffective disorder (psychotic). 6. History of left humeral shaft fracture. 7. History of left clavicular fracture. 8. Hypercalcemia (asymptomatic). 9. Dyslipidemia. PLAN: Continue current medication and treatment. Obtain labs in a.m. Further recommendations per Psychiatry. JOB# [id number] [facility]ITAL[facility]
--- NOTE | 2017-03-23 07:36 | Progress Notes ---
DATE: 03/22/2017 PSYCHIATRIC PROGRESS NOTE TIME PATIENT SEEN: 5:00 p.m. SUBJECTIVE: Staff was spoken to. The patient is interviewed. Mood is noted to be irritable. Affect is constricted. The patient has been getting agitated, and the patient has to be medicated via the intramuscular dose of Ativan and Haldol. The patient has no insight into his illness. The patient at this time . ASSESSMENT: The patient is still impulsive and psychotic. PLAN: To continue the patient with the supportive therapy. I encouraged the patient to verbalize the concerns rather than to act out. JOB# [id number]
[2017-03-23] MEDS: Magnesium Hydroxide (MOM) 30 mL UDC PO SCH (20:55)
--- NOTE | 2017-03-24 14:25 | Progress Notes ---
DATE: 03/22/2017 SUBJECTIVE: The patient is awake and alert. The patient is still in Geropsych Unit. Per Psychiatry, the patient is still impulsive and psychotic. The patient still has swelling of the bilateral legs. OBJECTIVE: VITAL SIGNS: Temperature 97.8, pulse of 83, blood pressure 90/66, respirations 19, and O2 sat 98% on room air. CARDIOVASCULAR: S1 and S2. RESPIRATORY: Clear. GASTROINTESTINAL: Soft, positive bowel sounds. EXTREMITIES: Edema present. LABORATORY DATA: Hematology reveals WBC 7.6, hemoglobin 13.4, hematocrit 38.9, platelet count of 202,000, no left shift. Chemistry reveals sodium is 139, potassium 4.1, chloride 106, bicarbonate of 28, anion gap 8.6, BUN 29, creatinine 0.7, GFR is more than 60, glucose is 125, calcium is 11.1. MICROBIOLOGY: MRSA screen from 03/10/2017 positive. ASSESSMENT: 1. Methicillin-resistant Staphylococcus aureus colonization. 2. Acute psychosis. 3. Bilateral lower extremities edema (secondary to venous insufficiency). 4. Bilateral lower extremities venous insufficiency. 5. Schizoaffective disorder (psychotic). 6. History of left humeral shaft fracture. 7. History of left clavicular fracture. 8. Hypercalcemia (asymptomatic). 9. Dyslipidemia. PLAN: Continue current medications and treatment. Obtain labs on Monday. Further recommendations per Psychiatry. JOB# [id number]
--- NOTE | 2017-03-24 14:33 | Progress Notes ---
DATE: 03/23/2017 SUBJECTIVE: The patient is awake and alert. The patient still in Geropsych Unit. Per Psychiatry, the patient is still impulsive and psychotic. The patient still continues to have edema and swelling of legs. OBJECTIVE: VITAL SIGNS: Temperature 98.2, pulse 90, blood pressure per nursing, respirations 19, O2 sat 97% on room air. CARDIOVASCULAR: S1 and S2. RESPIRATORY: Clear. GASTROINTESTINAL: Soft, positive bowel sounds. EXTREMITIES: Edema present. LABORATORY DATA: No labs for today. ASSESSMENT: 1. Methicillin-resistant Staphylococcus aureus colonization. 2. Acute psychosis. 3. Bilateral lower extremities edema (secondary to venous insufficiency). 4. Bilateral lower extremities venous insufficiency. 5. Schizoaffective disorder (psychotic). 6. History of left humeral shaft fracture. 7. History of left clavicular fracture. 8. Hypercalcemia (asymptomatic). 9. Azotemia. 10. Dyslipidemia. PLAN: Continue current medication and treatment. Further recommendations per Psychiatry. JOB# [id number] [facility]
--- NOTE | 2017-03-24 16:58 | Progress Notes ---
DATE: 03/23/2017 PSYCHIATRIC PROGRESS NOTE TIME PATIENT SEEN: 12:00 noon. SUBJECTIVE: Staff was spoken to. The patient is interviewed. Chart is reviewed. The patient is still grossly psychotic. Insight and judgment are noted to be still impaired. Impulse control seems to be limited. The patient needs to be redirected. The patient's coping skills are noted to be very poor at this time. ASSESSMENT: The patient is still psychotic and intrusive. PLAN: To continue the patient with the current medications and closely monitor. JOB# [id number]
[2017-03-24] MEDS: Magnesium Hydroxide (MOM) 30 mL UDC PO SCH (21:07)
--- NOTE | 2017-03-25 03:03 | Progress Notes ---
DATE: 03/24/2017 PSYCHIATRIC PROGRESS NOTE TIME PATIENT SEEN: 5:45 p.m. SUBJECTIVE: Staff was spoken to. The patient is interviewed. Mood is noted to be irritable. Affect is constricted. Insight and judgment are noted to be impaired. Impulse control is noted to be poor. The patient has been on 200 mg of Zyprexa twice a day, but still has been having difficult time to cope with the stress and the patient continues to be having a problem and hence I have decided to add a low dose of the Zyprexa at bedtime to see if it is going to be making any change and slowly the Zyprexa is going to be increased and the Seroquel is going to be discontinued. The patient still has been having difficult time to cope with the stress. The patient has no insight into his illness. The patient is getting into other people's problems and needs to be redirected constantly. ASSESSMENT: The patient is still grossly psychotic and impulsive. PLAN: To continue the patient with the current medications and followup. JOB# [id number]
[2017-03-25] MEDS ORDERED: Haloperidol Lactate 5 mg/mL 1mL Vial ONE (09:37)
[2017-03-25] MEDS ORDERED: Haloperidol Lactate 5 mg/mL 1mL Vial IM ONE (09:40)
[2017-03-25] MEDS: Magnesium Hydroxide (MOM) 30 mL UDC PO SCH (20:42)
--- NOTE | 2017-03-26 08:12 | Progress Notes ---
DATE: 03/25/2017 PSYCHIATRIC PROGRESS NOTE SUBJECTIVE: Staff was spoken to. The patient is interviewed. Mood is noted to be irritable. Affect is constricted. The patient is screaming and yelling. The patient has to be given a dose of the Haldol, Benadryl, and Ativan to calm him down. The patient is jumping up and down. The patient has been acting very bizarre and behavior is noted to be very primitive. The patient has been defecating on the floor. It is becoming difficult for the staff to contain. The patient is going to be closely monitored and encouraged to participate in the groups and verbalize the concerns. The patient is not ready to be discharged to a lower level of care yet. ASSESSMENT: The patient is still grossly psychotic and the patient is not ready to be discharged to a lower level of care. The patient is going to be closely monitored. Encouraged to participate in the groups and verbalize the concerns rather than to act out. [facility]# [id number]
--- NOTE | 2017-03-26 09:43 | Progress Notes ---
DATE: 03/25/2017 SUBJECTIVE: The patient is awake and alert. The patient is still in Geropsych Unit. Per Psychiatry, the patient is still grossly psychotic and impulsive. The patient is refusing medications. OBJECTIVE: Unable to do. LABS: No labs for today. ASSESSMENT: See previous progress note. PLAN: Continue current medication and treatment. Obtain labs on Monday. Further recommendations per Psychiatry. JOB# [id number] [facility]
--- NOTE | 2017-03-26 12:58 | Progress Notes ---
DATE: 03/24/2017 SUBJECTIVE: The patient still is in Geropsych Unit. The patient is awake. Per Psychiatry, still acute psychotic and impulsive. The patient has edema of bilateral lower extremities. OBJECTIVE: VITAL SIGNS: Temperature is 97.8, pulse 76, blood pressure per nursing, respirations 19, O2 sat on room air. CARDIOVASCULAR: S1 and S2. RESPIRATORY: Clear. GASTROINTESTINAL: Soft. Bowel sounds positive. EXTREMITIES: Bilateral lower extremities edema present. LABORATORY DATA: No labs for today. ASSESSMENT: See previous progress note. PLAN: Continue current medication and treatment. Obtain labs in a.m. Further recommendations per Psychiatry. JOB# [id number] [facility]
[2017-03-26] MEDS: Magnesium Hydroxide (MOM) 30 mL UDC PO SCH (20:26)
--- NOTE | 2017-03-27 06:28 | Progress Notes ---
DATE: 03/26/2017 PSYCHIATRIC PROGRESS NOTE TIME PATIENT SEEN: 2:00 p.m. SUBJECTIVE: Staff was spoken to. The patient is interviewed. Mood is noted to be irritable. Affect is constricted. Insight and judgment are noted to be still impaired. The patient has not been as agitated like yesterday. The patient needs to be on close monitoring and needs to be redirected. The patient has no insight into his illness. The patient is screaming and yelling and has been acting very bizarre, defecating on the floor and has no . ASSESSMENT: The patient is grossly psychotic and demented. PLAN: To continue the patient with the supportive therapy and followup. JOB# [id number]
--- NOTE | 2017-03-27 12:32 | Progress Notes ---
DATE: 03/27/2017 PSYCHIATRIC PROGRESS NOTE TIME PATIENT SEEN: 8:30 a.m. SUBJECTIVE: Staff was spoken to. The patient is interviewed. Mood is noted to be irritable. Affect is constricted. Coping skills are noted to be still poor. The patient has been urinating in the hallways. The patient has no control. The patient is urinating, but at the same time is laughing with no regard to his behavior. The patient is still confused and demented. ASSESSMENT: The patient is grossly psychotic and impulsive. PLAN: To continue the patient with the supportive therapy and followup. JOB# [id number]
[2017-03-27] MEDS: Magnesium Hydroxide (MOM) 30 mL UDC PO SCH (20:48)
--- NOTE | 2017-03-28 03:17 | Progress Notes ---
DATE: 03/27/2017 SUBJECTIVE: The patient still is in Geropsych Unit. Per Psychiatry, the patient is still grossly psychotic and impulsive. OBJECTIVE: VITAL SIGNS: Temperature 98, pulse 77, blood pressure 115/73, respiration 18, O2 saturation ____ on room air. CARDIOVASCULAR: S1 and S2. RESPIRATORY: Clear. GASTROINTESTINAL: Soft, positive bowel sounds. EXTREMITIES: Edema present. LABORATORY DATA: No labs for today. ASSESSMENT: 1. MRSA colonization, 2. Acute psychosis. 3. Bilateral lower extremities edema (secondary to venous insufficiency). 4. Bilateral lower extremities venous insufficiency. 5. Schizoaffective disorder (psychotic). 6. History of left humeral shaft fracture. 7. History of left clavicular fracture. PLAN: Continue current medication and treatment. Further recommendations per Psychiatry. Obtain labs on Monday. JOB# [id number] [facility]
--- NOTE | 2017-03-28 09:48 | Progress Notes ---
DATE: 03/26/2017 SUBJECTIVE: The patient is still in Geropsych Unit. The patient noted to be irritable. The patient's insight and judgment are impaired. The patient's agitation improved. The patient grossly psychotic, demented. OBJECTIVE: VITAL SIGNS: Temperature 98, pulse 58, Oxygen on room air. CARDIOVASCULAR: S1 and S2. RESPIRATORY: Clear. GASTROINTESTINAL: Soft, positive bowel sounds. EXTREMITIES: Edema present. LABORATORY DATA: No labs for today. ASSESSMENT: 1. Methicillin-resistant Staphylococcus aureus colonization, 2. Acute psychosis. 3. Bilateral lower extremities edema (secondary to venous insufficiency). 4. Bilateral lower extremities venous insufficiency. 5. Schizoaffective disorder (psychotic). 6. History of left humeral shaft fracture. 7. History of left clavicular fracture. 8. Hypercalcemia (asymptomatic). 9. Azotemia. 10. Dyslipidemia. PLAN: Continue current medication and treatment. Further recommendations per Psychiatry. JOB# [id number] [facility]
[2017-03-28] MEDS: Magnesium Hydroxide (MOM) 30 mL UDC PO SCH (20:27)
--- NOTE | 2017-03-29 07:05 | Progress Notes ---
DATE: 03/28/2017 PSYCHIATRIC PROGRESS NOTE TIME PATIENT SEEN: 11:00 a.m. SUBJECTIVE: Staff was spoken to. The patient is interviewed. Mood is noted to be irritable. Affect is constricted. Insight and judgment at this time are noted to be very much impaired. Impulse control seems to be poor. Coping skills are also noted to be very poor. The patient has been still grossly psychotic and testing the limits. No side effects to the medications are noted. ASSESSMENT: The patient is still grossly psychotic. PLAN: To continue the patient with the current medications. I encouraged the patient to verbalize the concerns rather than to act out. JOB# [id number]
[2017-03-29] MEDS ORDERED: Haloperidol Lactate 5 mg/mL 1mL Vial ONE (10:18)
[2017-03-29] MEDS ORDERED: Haloperidol Lactate 5 mg/mL 1mL Vial IM ONE (10:21)
[2017-03-29] MEDS: Magnesium Hydroxide (MOM) 30 mL UDC PO SCH (20:59)
--- NOTE | 2017-03-30 16:58 | Progress Notes ---
DATE: 03/29/2017 PSYCHIATRIC PROGRESS NOTE TIME PATIENT SEEN: 5:00 p.m. SUBJECTIVE: Staff was spoken to. The patient is interviewed. Mood is noted to be irritable. Affect is constricted. The patient has been getting out of control and has been screaming and yelling and has been all the computers on the floor, and the patient has no insight into his illness. In view of the patient's psychosis, it is decided to place the patient on Haldol. Because the patient is noncompliant with the medication, the patient is going to be given Haldol Decanoate 50 mg IM and the patient is going to be followed up with the supportive therapy. JOB# [id number]
[2017-03-30] MEDS: Magnesium Hydroxide (MOM) 30 mL UDC PO SCH (20:55)
--- NOTE | 2017-03-31 04:54 | Progress Notes ---
DATE: 03/30/2017 TIME PATIENT SEEN: 09:00 a.m. SUBJECTIVE: Staff was spoken to. The patient is interviewed. Mood is noted to be irritable. Affect is constricted. The patient has been pacing on the unit. Insight and judgment are noted to be very much impaired. The patient needs to be closely monitored and redirected. The patient has been placed on the haloperidol decanoate because of the fact that the patient has been noncompliant and has not been responding to olanzapine as well as the Seroquel. The Seroquel has been changed at bedtime. The patient is being closely monitored. No major behavioral problems are reported today. The patient continues to be paranoid. No side effects to the medications are noted. ASSESSMENT: The patient is still psychotic. PLAN: To continue the patient with supportive therapy. I encouraged the patient to verbalize the concerns rather than to act out. JOB# [id number]
--- NOTE | 2017-03-31 11:22 | Progress Notes ---
DATE: 03/28/2017 SUBJECTIVE: The patient is awake and alert. The patient is still in Geropsych Unit. Per Psychiatry, the patient is still grossly psychotic. Per nursing staff, the patient still has swelling of bilateral lower extremities. OBJECTIVE: VITAL SIGNS: Temperature 98, pulse 68, blood pressure 126/72, respiration 18, O2 sat 97% on room air. CARDIOVASCULAR: S1 and S2. RESPIRATORY: Clear. GASTROINTESTINAL: Soft. Positive bowel sounds. EXTREMITIES: Edema present. LABORATORY DATA: No new labs. ASSESSMENT: 1. MRSA colonization, 2. Acute psychosis. 3. Bilateral lower extremities edema. 4. Bilateral lower extremities venous insufficiency. 5. Schizoaffective disorder (psychotic). 6. History of left humeral shaft fracture. 7. History of left clavicular fracture. PLAN: Continue current medication and treatment. Further recommendations per Psychiatry. JOB# [id number]
--- NOTE | 2017-03-31 11:38 | Progress Notes ---
DATE: 03/29/2017 SUBJECTIVE: The patient is still in Geropsych Unit. Per Psychiatry, the patient still grossly psychotic. Per nursing staff, the patient has swelling of bilateral lower extremities. OBJECTIVE: VITAL SIGNS: Pulse per nursing, respiratory rate 20, O2 sat 99% on room air. CARDIOVASCULAR: S1 and S2. RESPIRATORY: Clear. GASTROINTESTINAL: Soft. Positive bowel sounds. EXTREMITIES: Edema present. LABORATORY DATA: No labs for today. ASSESSMENT: 1. Methicillin-resistant Staphylococcus aureus colonization, 2. Acute psychosis. 3. Bilateral lower extremities edema. 4. Bilateral lower extremities venous insufficiency. 5. Schizoaffective disorder (psychotic). 6. History of left humeral shaft fracture. 7. History of left clavicular fracture. PLAN: Continue current medication and treatment. Further recommendations per Psychiatry. JOB# [id number] [facility]
--- NOTE | 2017-03-31 11:53 | Progress Notes ---
DATE: 03/30/2017 SUBJECTIVE: The patient is awake. The patient is still in Geropsych Unit. Per Psychiatry, the patient grossly psychotic. Per nursing staff, the patient has bilateral lower extremity edema and warm to touch. OBJECTIVE: VITAL SIGNS: No vital signs for today. PE: unable to do due to patient in lock down unit LABORATORY DATA: No labs for today. ASSESSMENT: 1. Methicillin-resistant Staphylococcus aureus colonization, 2. Acute psychosis. 3. Bilateral lower extremities edema. 4. Bilateral lower extremities venous insufficiency. 5. Schizoaffective disorder (psychotic). 6. History of left humeral shaft fracture. 7. History of left clavicular fracture. PLAN: Continue current medication and treatment. Obtain labs in a.m. Further recommendations per Psychiatry. JOB# [id number] [facility]
[2017-03-31 15:23] LABS: % BASOPHILS 0.2 % (0.0-2.0); % EOSINOPHILS 0.4 % (0.0-5.0); % LYMPHOCYTES 24.7 % (20.0-50.0); % MONOCYTES 4.8 % (2.0-10.0); % NEUTROPHILS 69.9 % (40.0-80.0); HEMATOCRIT 40.5 % (39.0-49.0); HEMOGLOBIN 13.8 gm/dL (13.2-17.3); MEAN CELL VOLUME 91.2 fl (80-99); MEAN PLATELET VOLUME 7.5 fl; PLATELET COUNT 241 Th/cmm (150-400); RED BLOOD COUNT 4.44 Mil/cmm (4.30-5.70); RED CELL DISTRIBUTION WIDTH 12.8 % (11.5-20.0); WHITE BLOOD COUNT 7.1 Th/cmm (4.8-10.8)
[2017-03-31 18:25] LABS: ALB/GLOB RATIO 1.4 (1.0-1.8); ALKALINE PHOSPHATASE 154 U/L (34-104); ANION GAP 9.1 (7.0-16.0); BILIRUBIN,TOTAL 0.3 mg/dL (0.3-1.0); BUN - UREA NITROGEN 23 mg/dL (7-25); BUN/CREATININE RATIO 38.3; CALCIUM SERUM 10.7 mg/dL (8.6-10.3); CARBON DIOXIDE 26.3 mEq/L (21.0-31.0); CHLORIDE 106 mEq/L (98-107); CREATININE - SERUM 0.6 mg/dL (0.7-1.3); GLUCOSE 95 mg/dL (70-105); POTASSIUM SERUM 4.4 mEq/L (3.5-5.1); SGOT 26 U/L (13-39); SGPT/ALT 10 U/L (7-52); SODIUM SERUM 137 mEq/L (136-145)
[2017-03-31] MEDS: Magnesium Hydroxide (MOM) 30 mL UDC PO SCH (20:36)
--- NOTE | 2017-04-01 08:42 | Progress Notes ---
DATE: 03/31/2017 PSYCHIATRIC PROGRESS NOTE SUBJECTIVE: Chart is reviewed. Patient is interviewed. Mood is noted to be irritable. Affect is constricted. The patient is disrobing. The patient in his room. Coping skills are noted to be very poor. Continues to be very paranoid. The patient has been given the Haldol Decanoate and has been able to tolerate the medication. ASSESSMENT: The patient is still psychotic. PLAN: To continue the patient with the current medications and follow with supportive therapy. JOB# [id number]
[2017-04-01] MEDS: Magnesium Hydroxide (MOM) 30 mL UDC PO SCH (20:25)
--- NOTE | 2017-04-01 21:52 | Progress Notes ---
DATE: 04/01/2017 PSYCHIATRIC PROGRESS NOTE TIME PATIENT SEEN: 10:00 a.m. SUBJECTIVE: Staff was spoken to. The patient is interviewed. Mood is noted to be less irritable. The patient continues to be paranoid. The patient needs to be redirected. Insight and judgment at this time are noted to be still impaired. Impulse control seems to be improving to some extent. The patient has been having a difficult time to cope with the stress. No side effects to the medications are noted. ASSESSMENT: The patient is still psychotic and impulsive. PLAN: To continue the patient with supportive therapy and follow up. [facility]# [id number]
--- NOTE | 2017-04-02 03:51 | Progress Notes ---
DATE: 03/31/2017 SUBJECTIVE: The patient is awake. The patient is still in Geropsych Unit. The patient is still locked on the unit. Per Psychiatry, the patient is still psychotic. The patient reciving IM Haldol. OBJECTIVE: VITAL SIGNS: Unable to assess. PE: unable to do. ASSESSMENT: 1. 5150 hold. 2. Methicillin-resistant Staphylococcus aureus colonization. 3. Acute psychosis. 4. Bilateral extremity edema, lower extremities (secondary to venous insufficiency). 5. Schizoaffective disorder (psychotic). 6. History of left humeral shaft fracture. 7. History of left clavicular fracture. PLAN: Continue current medication and treatment. Further recommendations per Psychiatry. [facility]# [id number] [facility]
--- NOTE | 2017-04-02 04:57 | Progress Notes ---
DATE: 04/01/2017 SUBJECTIVE: The patient is awake. The patient is still in Geropsych Unit. Per Psychiatry, the patient is still has pressured speech. The patient is still acutely psychotic. OBJECTIVE: VITAL SIGNS: Unable to assess. PE: Unable to do. LABORATORY DATA: Labs from 03/31, show hematology, WBC 7.1, hemoglobin 13.8, hematocrit per labs, platelet 241, no left shift noted. Chemistry, sodium is 137, potassium 4.4, bicarb 26, anion gap of 9, BUN 23, [id number] 0.6, GFR is more than 60. Glucose is 95, calcium is 10.7, total bilirubin 0.3, AST 26, ALT 10, alkaline phosphatase per labs, albumin 4.3, globulin 3.0. ASSESSMENT: 1. Hypercalcemia. 2. 5150 hold. 3. Acute psychosis. 4. Schizophrenic disorder (psychotic). 5. Methicillin-resistant Staphylococcus aureus colonization. 6. Bilateral lower extremity edema. 7. Bilateral lower extremity venous insufficiency. 8. History of left humeral shaft fracture. 9. History of left clavicular fracture. PLAN: Continue current medication and treatment. Further recommendations per Psychiatry. JOB# [id number] [facility]ISION[facility]
--- NOTE | 2017-04-02 19:13 | Progress Notes ---
DATE: 04/02/2017 PSYCHIATRIC PROGRESS NOTE TIME PATIENT SEEN: 9 a.m. SUBJECTIVE: Staff was spoken to. The patient is interviewed. Mood is noted to be less irritable. The patient is GD chair. The patient could be redirected at this time. Paranoia is noted, but the patient denies any command hallucinations. The patient is being closely monitored for any falls. ASSESSMENT: The patient is still psychotic. PLAN: To continue the patient with the supportive therapy. I encouraged the patient to verbalize the concerns rather than to act out. JOB# [id number]
[2017-04-02] MEDS: Magnesium Hydroxide (MOM) 30 mL UDC PO SCH (20:51)
--- NOTE | 2017-04-03 01:45 | Progress Notes ---
DATE: 04/02/2017 SUBJECTIVE: The patient is in the geropsych unit. The patient did not walk down the unit. Per psychiatry, the patient is still psychotic and impulsive. Per the nursing staff, the patient was having bilateral lower extremity edema. OBJECTIVE: VITAL SIGNS: Pulse is 75, blood pressure 116/63, respiratory rate 18 with 100% on room air. PE unable due the patient being locked on the unit. LABORATORY DATA: No labs for today. ASSESSMENT: 1. 5150 hold. 2. Acute psychosis. 3. Schizoaffective disorder (psychotic). 4. Methicillin-resistant Staphylococcus aureus colonization. 5. Bilateral lower extremity edema. 6. Lower extremity venous insufficiency. 7. History of left humeral shaft fracture. 8. History of left clavicular fracture. PLAN: Continue current medication and treatment. Further recommendations per psychiatry. Routine labs in a.m. JOB# [id number] [facility]TD[facility]
[2017-04-03 07:06] LABS: % BASOPHILS 0.1 % (0.0-2.0); % EOSINOPHILS 1.2 % (0.0-5.0); % MONOCYTES 7.8 % (2.0-10.0); % NEUTROPHILS 60.9 % (40.0-80.0); HEMATOCRIT 41.3 % (39.0-49.0); HEMOGLOBIN 13.9 gm/dL (13.2-17.3); MEAN CELL VOLUME 91.1 fl (80-99); MEAN CORPUSCULAR HEMOGLOBIN 30.6 pg (26.0-30.0); MEAN CORPUSCULAR HGB CONC 33.6 pg (28.0-36.0); MEAN PLATELET VOLUME 7.8 fl; NEUTROPHILE ABSOLUTE 4.3 Th/cmm (1.8-8.0); PLATELET COUNT 241 Th/cmm (150-400); RED BLOOD COUNT 4.54 Mil/cmm (4.30-5.70); RED CELL DISTRIBUTION WIDTH 13.3 % (11.5-20.0); WHITE BLOOD COUNT 7.2 Th/cmm (4.8-10.8)
[2017-04-03 07:19] LABS: ANION GAP 6.4 (7.0-16.0); BUN - UREA NITROGEN 26 mg/dL (7-25); BUN/CREATININE RATIO 32.5; CALCIUM SERUM 10.8 mg/dL (8.6-10.3); CARBON DIOXIDE 30.7 mEq/L (21.0-31.0); CHLORIDE 104 mEq/L (98-107); CREATININE - SERUM 0.8 mg/dL (0.7-1.3); GLUCOSE 95 mg/dL (70-105); POTASSIUM SERUM 4.1 mEq/L (3.5-5.1); SODIUM SERUM 137 mEq/L (136-145)
[2017-04-03] MEDS: Magnesium Hydroxide (MOM) 30 mL UDC PO SCH (20:59)
--- NOTE | 2017-04-03 23:42 | Progress Notes ---
DATE: 04/03/2017 PSYCHIATRIC PROGRESS NOTE TIME PATIENT SEEN: 9:15 a.m. SUBJECTIVE: Staff was spoken to. The patient is interviewed. Mood is noted to be irritable. Affect is constricted. Insight and judgment are noted to be still impaired. The patient is making funny noises this morning. The patient has to be redirected and has to be moved away from the other peers because the patient has been very disruptive. ASSESSMENT: The patient is still psychotic. PLAN: To continue the patient with supportive therapy. I encouraged the patient to verbalize the concerns rather than to act out. JOB# [id number]
--- NOTE | 2017-04-04 07:44 | Progress Notes ---
DATE: 04/03/2017 SUBJECTIVE: The patient is awake. The patient is still in Aniceto-Psych Unit. The patient on locked on unit. Per Psychiatry, the patient is still psychotic. OBJECTIVE: VITAL SIGNS: Temperature is 97.9, pulse 89, blood pressure 112/71, respiratory rate 19, O2 sat is 98% on room air. CARDIOVASCULAR: S1 and S2. RESPIRATORY: Clear. GASTROINTESTINAL: Soft. Positive bowel sounds. EXTREMITIES: Bilateral lower extremities edema with erythema present. LABORATORY DATA: CBC: WBC 7.2, hemoglobin 13.9, hematocrit 41.3, platelet count of 241, no left shift noted. Chemistry: Sodium 137, potassium 4.1, bicarb 30, anion gap is 6.4, BUN is 26, creatinine 0.8, GFR per labs. Glucose 95, calcium 10.8. MICROBIOLOGY: MRSA screening from 03/10/2017 positive. ASSESSMENT: 1. Methicillin-resistant Staphylococcus aureus colonization. 2. Azotemia. 3. Hypercalcemia. 4. On 5150 hold. 5. Acute psychosis. 6. Schizoaffective disorder (psychotic). 7. Bilateral lower extremities edema. 8. Bilateral lower extremities venous insufficiency. 9. Possible bilateral lower extremities cellulitis. 10. History of left humeral shaft fracture. 11. History of left clavicular fracture. PLAN: Continue current medication and treatment. We will start the patient on Keflex for bilateral lower extremities possible cellulitis. Further consults. Further recommendations per Psychiatry. JOB# [id number] [facility]
--- NOTE | 2017-04-05 09:36 | Progress Notes ---
DATE: 04/04/2017 PSYCHIATRIC PROGRESS NOTE TIME PATIENT SEEN: 8:45 a.m. SUBJECTIVE: Staff was spoken to. The patient is interviewed. Mood is noted to be irritable. Affect is constricted. The patient needs to be redirected. The patient has paranoia. The patient tends to shout at top of his lungs. The patient has been given a dose of the Zyprexa and Benadryl to calm him down. The patient has been here almost for 3 weeks and the patient has been given the intramuscular dose of neuroleptic and the patient has been able to tolerate. No side effects to the medications are noted. ASSESSMENT: The patient is still psychotic. PLAN: To continue the patient with the supportive therapy and possibly discharge the patient to a lower level of care when he is stable and the patient needs a higher level of care than what we are able to provide on this unit. JOB# [id number]
== END 2017-04-04 15:15 | DRG 885 ==
LOC: ER 17:15 → GERO 18:53
PROVIDERS: ADMIT Psychiatry & Neurology Psychiatry; ATTEND Psychiatry & Neurology Psychiatry
DX: F25.0 Schizoaffective disorder, bipolar type (principal); G20 Parkinson's disease; F02.80 Dementia in other diseases classified elsewhere, unspecified severity, without behavioral disturbance, psychotic disturbance, mood disturbance, and anxiety; E83.52 Hypercalcemia; F20.0 Paranoid schizophrenia; E78.5 Hyperlipidemia, unspecified; R45.87 Impulsiveness; R73.9 Hyperglycemia, unspecified; Z22.322 Carrier or suspected carrier of Methicillin resistant Staphylococcus aureus
CPT/HCPCS: 36415-UA; 71010-TC; 73030-TC-LT; 73200-TC-LT; 80048-TC; 80053-TC; 80061-TC; 82306-90; 82330-90; 82652-90; 82948-90; 83519-90; 83970-90; 84443-TC; 84484-TC; 85025-TC; 85610-TC; 85730-TC; 86592-TC; 90899; 93005; 93925-TC; 93970-TC-50; A4216; J1200; J1630; J1631; J2060; J7051; Z7610